=== PATIENT | male | born 1945 | race Caucasian/White ===

== ENCOUNTER → 2018-05-01 | Outpatient (CLI) | payer MEDICARE ==
[~2018-05-01] MED LIST: ASPI-496 PO; FAMO40TA4 PO; GLUC15006 PO; LOVA40TA2 PO; MULT-658 PO; NIAC10002 PO; OMEG1CAP25 PO; OMEP-110 PO; PROP20TA PO; SOTA160T PO; WARF-36 PO
== END | disposition home or self-care (01) ==
LOC: ROC 10:09
PROVIDERS: ATTEND Radiology Radiation Oncology
DX: Z08 Encounter for follow-up examination after completed treatment for malignant neoplasm (principal); C61 Malignant neoplasm of prostate
CPT/HCPCS: G0463